=== PATIENT | male | born 1955 | race Caucasian/White ===

== ENCOUNTER 2019-04-05 11:50 | Emergency (ER) | payer MEDICARE, MEDICAID ==
--- NOTE | 2019-04-05 12:58 | C.PDOC ---
History Of Present Illness 64 year old male who has a h/o constipation presents to ED with complaint of shortness of breath that occurred at 9:30am this morning while [place]. He states that after he turned on the A/C he felt bet ter. Patient also complains of gas and constipation. He thinks the constipation and gassy feeling he has affected the way he was breathing. He states that he usually takes Gas-X and Dulcolax with some improvement. He states that he has been taking Cipro for a fissure nerar his rectum. His PMD is Dr. Poncho Frias. He reports that he had a small bowel movement prior to arrival. Patient states that his symptoms have improved. He denies rectal bleeding, fever, chills, abdominal pain, chest pain, nausea, or vomiting. Time Seen by Provider: 04/05/19 12:27 Chief Complaint (Nursing): Shortness Of Breath History Per: Patient History/Exam Limitations: no limitations Onset/Duration Of Symptoms: Hrs (2.5) Current Symptoms Are (Timing): Better Associated Symptoms: denies: Fever, Chills, Chest Pain Past Medical History Reviewed: Historical Data, Nursing Documentation, Vital Signs Vital Signs: Last Vital Signs Temp 98.7 F 04/05/19 12:01 Pulse 82 04/05/19 12:01 Resp 18 04/05/19 12:01 BP 125/72 04/05/19 12:01 Pulse Ox 97 04/05/19 12:01 Primary Care Provider: Non [facility] Provider, - Medical History PMH: Hypercholesterolemia Surgical History: No Surg Hx Family History: States: Unknown Family Hx - Social History Hx Alcohol Use: No Hx Substance Use: No Review Of Systems Constitutional: Negative for: Fever, Chills, Weakness Cardiovascular: Negative for: Chest Pain Respiratory: Positive for: Shortness of Breath. Negative for: Cough Gastrointestinal: Positive for: Constipation, Other (gas). Negative for: Nause a, Vomiting, Abdominal Pain, Diarrhea, Rectal Pain Physical Exam - Physical Exam Appears: Non-toxic, No Acute Distress Skin: Normal Color, Warm, Dry Head: Atraumatic, Normacephalic Eye(s): bilateral: Normal Inspection (conjunctiva clear), PERRL, EOMI Oral Mucosa: Moist Chest: Symmetrical Cardiovascular: Rhythm Regular, No Murmur Respiratory: No Rales, No Rhonchi, No Wheezing, Other (Good air movement, Lungs CTA bilaterally) Gastrointestinal/Abdominal: Soft, No Tenderness, No Distention, No Guarding, No Rebound Extremity: Bilateral: Atraumatic, Normal Color And Temperature, Normal ROM, Other (no cyanosis or edema) Pulses: Left Dorsalis Pedis: Normal, Right Dorsalis Pedis: Normal Neurological/Psych: Oriented x3, Normal Speech, Normal Cognition, Normal Cranial Nerves, Normal Motor, Normal Sensation ED Course And Treatment - Laboratory Results Result Diagrams: 04/05/19 13:04 04/05/19 13:04 ECG: Interpreted By Me, Viewed By Me ECG Rhythm: Sinus Rhythm ECG Interpretation: Normal Rate From EC O2 Sat by Pulse Oximetry: 97 (in RA) Pulse Ox Interpretation: Normal - CT Scan/US US abdomen Other Rad Studies (CT/US): Read By Radiologist, Radiology Report Reviewed CT/US Interpretation: Accession No. : [id number]. Patient Name / ID : JEAN [id number] / [id number]. Exam Date : 04/05/2019 13:09:30 ( Approved ). Study Comment : Sex / Age : M / 64Y. Creator : Yennifer Cabrera MD. Dictator : Yennifer Cabrera MD. Mild Disabilities Teacher : Family Readiness Support Assistant : Yennifer Cabrera MD. Approver2 : Report Date : 04/05/2019 13:58:36. My Comment : . Date of service: 04/05/2019. PROCEDURE: Radiographs of the chest and abdomen (obstructive series). HISTORY: abdominal pain. COMPARISON: None available. TECHNIQUE: AP radiograph of the chest, with upright and supine radiographs of the abdomen. FINDINGS: CHEST: Heart size appears within normal limits. Mild left basilar atelectasis. No significant pleural effusion or definite pneumothorax identified. Please note that chest x-ray has limited sensitivity for the detection of pulmonary masses. ABDOMEN AND PELVIS: Nonspecific bowel gas pattern. Mild constipation. No definite free air. No acute osseous abnormality is detected. IMPRESSION: Mild left basilar atelectasis. Mild constipation. Medical Decision Making Medical Decision Making: Impression: 64 year old male presents to ED with complaint of difficulty breathing that occurred at 9:30am this morning while he was driving. Initial Plan: EKG CMP CBC Obstruction series UA lipase troponin Results d/w patient. Patient asking for suggestions for constipation. I suggested Miralax. Patient then informs me that he has A GI doc who rx'd meds patient did not fill d/t required pre approval needed which he is in the process of obtaining now. Patient is stable for d/c home to f/u his gi doc. Disposition Counseled Patient/Family Regarding: Studies Performed, Diagnosis, Need For Followup - Disposition Disposition: HOME/ ROUTINE Disposition Time: 14:33 Condition: STABLE Additional Instructions: ARELY PENA, thank you for letting us take care of you today. Your provider was Peyton Mcdaniel MD and you were treated for TROUBLE BREATH/RECTAL PROBLEM. The emergency medical care you received today was directed at your acute symptoms. You can try Miralax or other similar medications available [id number] for constipation. It may take several days for your symptoms to resolve. Return to the Emergency Department if your symptoms worsen, do not improve, or if you have any other problems. Please contact your doctor for a follow up appointment in 1-2 days. Bring any paperwork you were given at discharge with you along with any medications you are taking to your follow up visit. Our treatment cannot replace ongoing medical care by a primary care provider outside of the emergency department. Thank you for allowing the [facility] team to be part of your care today. Instructions: Constipation, Adult (DC), Acute Abdomen (Belly Pain), Adult (DC) Forms: [employer] (American), General Discharge Instructions - POA Present On Arrival: None - Clinical Impression Clinical Impression: Abdominal pain, Constipation - Scribe Statement The provider has reviewed the documentation as recorded by the Scribe (Angy Stoner) All medical record entries made by the Scribe were at my direction and personally dictated by me. I have reviewed the chart and agree that the record accurately reflects my personal performance of the history, physical exam, medical decision making, and the department course for this patient. I have also personally directed, reviewed, and agree with the discharge instructions and disposition.
[2019-04-05 13:04] VITALS: RESP 20
[2019-04-05 13:11] LABS: BASO # 0.1 K/uL (0.0-0.2); BASO % 1.3 % (0.0-2.0); EOS % 0.7 % (0.0-4.0); HEMOGLOBIN 13.9 g/dL (12.0-18.0); LYMPH # 2.3 K/uL (1.0-4.3); LYMPH % 33.8 % (20.0-40.0); MEAN CELL VOLUME 87.5 fL (80.0-94.0); MEAN CORPUSCULAR HEMOGLOBIN 30.6 pg (27.0-31.0); MEAN CORPUSCULAR HGB CONC 34.9 g/dL (33.0-37.0); MEAN PLATELET VOLUME 7.1 fL (7.2-11.7); MONO # 0.6 K/uL (0.0-0.8); MONO % 8.9 % (0.0-10.0); NEUT # 3.8 K/uL (1.8-7.0); NEUT % 55.3 % (50.0-75.0); RBC 4.55 Mil/uL (4.40-5.90); RED CELL DISTRIBUTION WIDTH 13.2 % (11.5-14.5); WHITE BLOOD COUNT 6.8 K/uL (4.8-10.8)
[2019-04-05 13:28] LABS: ALB/GLOB RATIO 1.3 (1.0-2.1); ALBUMIN 4.4 g/dL (3.5-5.0); ALT/SGPT 32 U/L (21-72); AST/SGOT 29 U/L (17-59); BLOOD UREA NITROGEN 12 mg/dL (9-20); CALCIUM 9.7 mg/dl (8.6-10.4); GFR NON-AFRICAN AMERICAN > 60; LIPASE 35 U/L (23-300)
[2019-04-05] MEDS ORDERED: Aluminum Hydroxide/Magnesium Hydroxide Susp (30 mL) ONE (13:34)
[2019-04-05] MEDS ORDERED: Aluminum Hydroxide/Magnesium Hydroxide Susp (30 mL) PO STA (13:36)
[2019-04-05 13:56] LABS: URINE BACTERIA RARE (<OCC); URINE BILIRUBIN NEGATIVE (NEGATIVE); URINE BLOOD NEGATIVE (NEGATIVE); URINE CLARITY Clear (Clear); URINE COLOR Yellow (YELLOW); URINE GLUCOSE (UA) NORMAL (Normal); URINE LEUKOCYTE ESTERASE NEG Leu/uL (Negative); URINE PROTEIN NEGATIVE (NEGATIVE); URINE UROBILINOGEN NORMAL mg/dL (0.2-1.0)
--- NOTE | 2019-04-05 14:02 | RAD ---
Date of service: 04/05/2019 PROCEDURE: Radiographs of the chest and abdomen (obstructive series) HISTORY: abdominal pain COMPARISON: None available. TECHNIQUE: AP radiograph of the chest, with upright and supine radiographs of the abdomen. FINDINGS: CHEST: Heart size appears within normal limits. Mild left basilar atelectasis. No significant pleural effusion or definite pneumothorax identified. Please note that chest x-ray has limited sensitivity for the detection of pulmonary masses. ABDOMEN AND PELVIS: Nonspecific bowel gas pattern. Mild constipation. No definite free air. No acute osseous abnormality is detected. IMPRESSION: Mild left basilar atelectasis. Mild constipation.
[2019-04-05 14:50] VITALS: BP 112/68; PULSE 60; TEMP 97.9
--- NOTE | 2019-04-06 15:28 | CARD ---
APPROVED REPORT Date of service: 04/05/2019 EKG Measurement Heart [id number] <Conclusion> Normal sinus rhythm with sinus arrhythmia Normal ECG
[2019-04-06 18:46] VITALS: O2SAT 97
== END 2019-04-05 14:50 | disposition home or self-care (01) ==
LOC: C.ER 11:50
DX: R10.9 Unspecified abdominal pain (principal); K59.00 Constipation, unspecified; E78.00 Pure hypercholesterolemia, unspecified